=== PATIENT | female | born 1950 | race Caucasian/White ===

== ENCOUNTER → 2017-04-27 | Outpatient (CLI) | payer OTHER ==
[~2017-04-27] MED LIST: BETAPACE 80MG80 MG PO; BETIMOL 0.5% OPH5 ML OU; CALTRATE-600 W600 MG PO; HCTZ12.5TAB PO; MASON NATURAL2000 IU PO; MVI; SYNTHROID 0.0.025 MG PO; TRAVATAN Z 2.52.5 ML OU; ZESTRIL2.5 MG PO
== END ==
LOC: MC.RAD 10:38
DX: Z12.31 Encounter for screening mammogram for malignant neoplasm of breast (principal)

== ENCOUNTER → 2018-07-13 | Outpatient (CLI) | payer MEDICARE, OTHER | LOC: MC.RAD 08:40 | DX: Z12.31 Encounter for screening mammogram for malignant neoplasm of breast (principal) ==

== ENCOUNTER 2019-07-26 13:28 | Inpatient (IN) | payer MEDICARE, OTHER ==
[~2019-07-26] VITALS: Ht 170.2 cm; Wt 65.5 kg
[2019-08-23] MEDS ORDERED: NORCO 325 MG-51 TAB PO (12:21)
[2019-08-23] MEDS ORDERED: ZITHROMAX TRI-500 MG PO (12:22)
[2019-08-23] MEDS ORDERED: PREDNISONE10 MG PO (12:24)
[2019-08-23] MEDS ORDERED: IPRATROPIUM BROM3 M1 IH ×2 (12:25→13:21)
[2019-08-23] MEDS ORDERED: OMNICEF 300MG300 MG PO (12:33)
[2019-08-23] MEDS ORDERED: TRAVATAN Z 5 ML5 ML OU (12:34)
[2019-08-23] MEDS ORDERED: MASON NATURAL2000 IU PO (12:36)
[2019-08-23] MEDS ORDERED: DULCOLAX STOOL100 MG PO (12:37)
[2019-08-23] MEDS ORDERED: CARDIZEM120 MG PO (12:40)
[2019-08-23] MEDS ORDERED: TYLENOL 500MG500 MG PO (12:40)
[2019-08-23] MEDS ORDERED: BETIMOL 0.5% OPH5 ML OU (12:42)
[2019-08-23] MEDS ORDERED: COUMADIN 1MG1 MG/TAB PO ×2 (12:43→12:46)
[2019-08-23] MEDS ORDERED: NITROSTAT0.4 MG/TAB SL (12:44)
[2019-08-23] MEDS ORDERED: LASIX 40MG TABL40 MG PO (12:45)
[2019-08-23] MEDS ORDERED: K-DUR20 MEQ PO (12:48)
[2019-08-23] MEDS ORDERED: K-DUR 10 MEQ T10 MEQ PO (12:49)
[2019-08-23] MEDS ORDERED: ATROVENT I0.2 MG/1 M IH (12:50)
[2019-08-23] MEDS ORDERED: ALPHAGAN OPHTH D5 ML OU (12:52)
[2019-08-23] MEDS ORDERED: CORDARONE200 MG/TAB PO (12:52)
[2019-08-25] VITALS (9 sets, daily range): BP systolic 115–135; BP diastolic 65–74; PULSE 53–70; TEMP 97.5–97.9
[2019-08-25] MEDS ORDERED: MULTIPLE VITAMI1 CAP PO (11:36)
[2019-08-25] MEDS ORDERED: CALCIUM 600MG+D1 TAB PO (11:37)
[2019-08-25] MEDS ORDERED: VITAMIN C500 MG PO (11:39)
[2019-08-25] MEDS ORDERED: VITAMIN D31000 IU PO (11:40)
[2019-08-25] MEDS ORDERED: TIROSINT25 MC1 PO (11:40)
--- NOTE | 2019-08-25 16:20 | NUR ---
Patient to room 323 from PACU by bed. A&Ox3, drowsy and "feels weird" VSS. IV CDI, fluids to gravity. Post Op VS monitored. LAp sites x5, CDI. Peripad CDI. SCD bilateral legs. No further needs expressed from patient. Call light within reach
--- NOTE | 2019-08-25 18:05 | NUR ---
Patient sitting up in bed, at the bedside. A&Ox3, denies pain and discomfort. Stating that she is starting to feel better and not as "weird" VSS. IV CDI, fluids infusing. Lap sites abdomen CDI. SCD bilateral legs. No further needs expressed from patient. Call light within reach
--- NOTE | 2019-08-25 21:14 | NUR ---
Pt doing well. Alert and oriented with VSS. ERAS protocol. Clear liquid diet. 18g in L hand with LR running at 100. Hall [address] with clear yellow urine. Has 5 lap sites, CD&I. Ambulated in hallway about 150 ft. Tolerated well. SCDS in place. Denies needs at this time. Call light within reach, will continue to monitor.
--- NOTE | 2019-08-26 03:42 | NUR ---
Pt doing ok. Sleeping in bed. Uneventful night. Call light within reach, will continue to monitor
[2019-08-26 03:51] VITALS: BP 103/62; PULSE 51
[2019-08-26 08:00] VITALS: BP 101/57; PULSE 51; TEMP 98.2
--- NOTE | 2019-08-26 08:00 | NUR ---
Patient in bed resting. Alert and oriented x 3. Shift assessment complete. lap sites x 5 with edges well approximated. Denies pain at this time. States she is passing gas no BM yet. Spouse at bedside. Hall to dependent drainage with clear yellow urine present in bag. Denies further needs at this time.
--- NOTE | 2019-08-26 09:20 | NUR ---
Discontinued judge catheter per orders. pericare provided. Tolerated procedure well.
--- NOTE | 2019-08-26 10:19 | NUR ---
DON met with the patient and her , Jed ([phone]), to discuss discharge plan. The patient lives in [place] with her . She reports independence with ADLs and does not have any DME. The patient's PCP is Dr. Richard Flynn and she receives her medications at [facility]. She reports no difficulties obtaining her meds. The patient does not have advanced directives completed, but she was interested in obtaining a form for DPOA-HC. DON provided. The patient plans to return home with her upon discharge. No additional needs at this time.
--- NOTE | 2019-08-26 12:01 | NUR ---
Patient up ambulating in halls with spouse, voiding without difficulties. Tolerating diet with out nausea/vomiting. Denies needs at this time. States she is ready to discharge.
--- NOTE | 2019-08-26 12:40 | NUR ---
Discharge education provided for patient. Educated on signs and symptoms of infection and when to call provided. Educated on scheduling follow up appointment. All questions answered. INT to left hand discontinued, catheter tip intact. Denies further needs at this time. Patient out by wheelchair with spouse and surgical staff.
[2019-08-26 13:38] VITALS: BP 121/61; PULSE 64; TEMP 97.7
== END 2019-08-26 12:40 | disposition home or self-care (01) | DRG 748 ==
LOC: SURG 08-25 11:05 → INPTSU 08-25 11:05 → SURG 08-25 13:00
PROVIDERS: ADMIT Urology
PROC: 8E0W4CZ Robotic Assisted Procedure of Trunk Region, Percutaneous Endoscopic Approach (ICD-10-PCS; 2019-08-25)
PROC: 0USG4ZZ Reposition Vagina, Percutaneous Endoscopic Approach (ICD-10-PCS; principal; 2019-08-25 13:00)
DX: N81.11 Cystocele, midline (principal); M19.90 Unspecified osteoarthritis, unspecified site; F17.200 Nicotine dependence, unspecified, uncomplicated; E07.9 Disorder of thyroid, unspecified; Z90.711 Acquired absence of uterus with remaining cervical stump
CPT/HCPCS: A4314; C1781; J0690; J1100; J1885; J2250; J2370; J2405; J2704; J2765; J7050; J7120

== ENCOUNTER → 2019-08-03 | Outpatient (CLI) | payer MEDICARE, OTHER | LOC: MC.RAD 15:26 | DX: Z12.31 Encounter for screening mammogram for malignant neoplasm of breast (principal) ==

== ENCOUNTER → 2020-08-17 | Outpatient (CLI) | payer MEDICARE, OTHER ==
[~2020-08-17] MED LIST changes: +ALPHAGAN OPHTH D5 ML OU; +ATROVENT I0.2 MG/1 M IH; +CALCIUM 600MG+D1 TAB PO; +CARDIZEM120 MG PO; +CORDARONE200 MG/TAB PO; +COUMADIN 1MG1 MG/TAB PO; +DULCOLAX STOOL100 MG PO; +IPRATROPIUM BROM3 M1 IH; +K-DUR 10 MEQ T10 MEQ PO; +K-DUR20 MEQ PO; +LASIX 40MG TABL40 MG PO; +MULTIPLE VITAMI1 CAP PO; +NITROSTAT0.4 MG/TAB SL; +NORCO 325 MG-51 TAB PO; +OMNICEF 300MG300 MG PO; +PREDNISONE10 MG PO; +TIROSINT25 MC1 PO; +TRAVATAN Z 5 ML5 ML OU; +TYLENOL 500MG500 MG PO; +VITAMIN C500 MG PO; +VITAMIN D31000 IU PO; +ZITHROMAX TRI-500 MG PO
== END ==
LOC: MC.RAD 14:00
DX: Z12.31 Encounter for screening mammogram for malignant neoplasm of breast (principal)

== ENCOUNTER → 2021-12-11 | Outpatient (CLI) | payer MEDICARE, OTHER | LOC: MC.RAD 07:15 | DX: Z12.31 Encounter for screening mammogram for malignant neoplasm of breast (principal) ==

== ENCOUNTER → 2024-06-16 | Outpatient (CLI) | payer MEDICARE, OTHER | LOC: MC.RAD 06:59 | DX: Z12.31 Encounter for screening mammogram for malignant neoplasm of breast (principal) ==